=== PATIENT | female | born 1990 | race African-American/Black ===

== ENCOUNTER 2018-03-02 07:38 | Emergency (ER) | payer MEDICAID ==
[~2018-03-02] VITALS: Ht 160 cm; Wt 79.0 kg
[2018-03-02] MEDS ORDERED: IBUPROFEN 600MG TABLET PO ONE (08:30)
[2018-03-02] MEDS ORDERED: METHOCARBAMOL 500MG TABLET PO ONE (08:30)
[2018-03-02 09:06] VITALS: BP 124/63
[2018-03-02 11:07] LABS: CLARITY URINE CLOUDY (CLEAR); COLOR URINE YELLOW (YELLOW); KETONES URINE NEGATIVE (NEGATIVE); LEUKOCYTE ESTERASE URINE 1+ (NEGATIVE); NITRITE URINE NEGATIVE (NEGATIVE); OCCULT BLOOD URINE NEGATIVE (NEGATIVE); PROTEIN URINE NEGATIVE (NEGATIVE); SPECIFIC GRAVITY URINE 1.026 (1.005-1.030)
== END 2018-03-02 12:46 | disposition home or self-care (01) ==
LOC: ER 07:38
DX: S39.011A Strain of muscle, fascia and tendon of abdomen, initial encounter (principal); X50.9XXA Other and unspecified overexertion or strenuous movements or postures, initial encounter; Y93.B9 Activity, other involving muscle strengthening exercises; Y92.89 Other specified places as the place of occurrence of the external cause; Y99.8 Other external cause status
CPT/HCPCS: 73502; 76857; 93970; 99284

== ENCOUNTER 2019-04-18 13:09 | Emergency (ER) | payer MEDICAID ==
[~2019-04-18] VITALS: Ht 160 cm; Wt 89.0 kg
[2019-04-18] MEDS ORDERED: IBUPROFEN 600MG TABLET PO ONE (15:15)
[2019-04-18 15:40] VITALS: BP 134/91
== END 2019-04-18 17:53 | disposition left against medical advice (07) ==
LOC: ER 13:09
DX: J06.9 Acute upper respiratory infection, unspecified (principal); J45.909 Unspecified asthma, uncomplicated; R51 Headache; R11.10 Vomiting, unspecified; Z88.8 Allergy status to other drugs, medicaments and biological substances
CPT/HCPCS: 87070; 87430; 99283

== ENCOUNTER 2019-09-12 23:42 | Emergency (ER) | payer MEDICAID ==
[~2019-09-12] VITALS: Ht 160 cm; Wt 82.0 kg
[2019-09-13] MEDS ORDERED: KETOROLAC 60MG/2ML VIAL IM ONE (00:15)
[2019-09-13 00:32] VITALS: BP 102/65
== END 2019-09-13 00:15 | disposition left against medical advice (07) ==
LOC: ER 23:42
DX: M54.5 Low back pain (principal)
CPT/HCPCS: 81025; 99282; J1885

== ENCOUNTER 2020-01-13 14:15 | Emergency (ER) | payer MEDICAID ==
[~2020-01-13] VITALS: Ht 160 cm; Wt 82.0 kg
[2020-01-13] MEDS ORDERED: HYDROCODONE/ACETAMINOPHEN 5/325MG TABLET PO STA (16:37)
[2020-01-13] MEDS ORDERED: TETANUS, DIPHTHERIA, PERTUSSIS VAC/PF 0.5ML (>7YR OLD) IM ONE (16:45)
[2020-01-13 17:13] LABS: CLARITY URINE CLEAR (CLEAR); COLOR URINE YELLOW (YELLOW); KETONES URINE NEGATIVE (NEGATIVE); LEUKOCYTE ESTERASE URINE TRACE (NEGATIVE); NITRITE URINE NEGATIVE (NEGATIVE); OCCULT BLOOD URINE 2+ (NEGATIVE); PROTEIN URINE NEGATIVE (NEGATIVE); SPECIFIC GRAVITY URINE 1.016 (1.005-1.030)
[2020-01-13 17:38] LABS: BASOPHILS % 0.7 % (0.0-2.0); EOSINOPHILS % 0.3 % (0.0-5.0); HEMATOCRIT. 36.7 % (36.0-48.0); HEMOGLOBIN. 12.2 g/dL (12.0-16.0); MEAN CORPUSCULAR HEMOGLOBIN 29.8 pg (28.0-32.0); MEAN CORPUSCULAR VOLUME 89.9 fL (81.0-99.0); MEAN PLATELET VOLUME 9.1 fl (7.4-10.4); PLATELET 208 x1000/uL (130-400); RED BLOOD CELL COUNT 4.08 mill/uL (4.2-5.4); RED CELL DISTRIBUTION WIDTH 12.8 % (11.6-14.6)
[2020-01-13 17:39] LABS: CHLORIDE 104 mEq/L (98-107)
[2020-01-13 17:43] LABS: PROTHROMBIN TIME 10.6 sec (9.6-11.0)
[2020-01-13 17:47] LABS: HCG SCREEN NEGATIVE
[2020-01-13 18:33] VITALS: BP 119/88
== END 2020-01-13 18:35 | disposition home or self-care (01) ==
LOC: ER 14:15
DX: S02.85XA Fracture of orbit, unspecified, initial encounter for closed fracture (principal); S02.2XXA Fracture of nasal bones, initial encounter for closed fracture; J45.909 Unspecified asthma, uncomplicated; I49.9 Cardiac arrhythmia, unspecified; Z88.8 Allergy status to other drugs, medicaments and biological substances; Y08.89XA Assault by other specified means, initial encounter; Y93.89 Activity, other specified; Y92.89 Other specified places as the place of occurrence of the external cause; Y99.8 Other external cause status
CPT/HCPCS: 36415; 70486; 80053; 81003; 81025; 84703; 85025; 90471; 90715; 93005; 99285